=== PATIENT | male | born 1950 | race Caucasian/White ===

== ENCOUNTER 2018-01-07 19:07 | Emergency (ER) | payer OTHER ==
[~2018-01-07] VITALS: Ht 177.8 cm; Wt 59.0 kg
[2018-01-07 19:20] VITALS: BP 134/89; Ht 177.8 cm; Wt 59.0 kg
== END 2018-01-07 21:30 | disposition left against medical advice (07) ==
LOC: ED 19:07
DX: Z53.21 Procedure and treatment not carried out due to patient leaving prior to being seen by health care provider (principal)